=== PATIENT | male | born 1975 | race Caucasian/White ===

== ENCOUNTER 2020-11-27 16:12 | Emergency (ER) | payer OTHER, SELFPAY ==
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
[2020-11-27 16:26] VITALS: BP 121/67; PULSE 64; RESP 16; TEMP 36.2; O2SAT 98
== END 2020-11-27 16:50 | disposition home or self-care (01) ==
PROVIDERS: Emergency Provider Nurse Practitioner
DX: S13.4XXA Sprain of ligaments of cervical spine, initial encounter (principal); V43.62XA Car passenger injured in collision with other type car in traffic accident, initial encounter
CPT/HCPCS: 99203; G0463